=== PATIENT | male | born 1980 | race Caucasian/White ===

== ENCOUNTER 2017-04-30 11:41 | Emergency (ER) | payer BC ==
[~2017-04-30] VITALS: Ht 188 cm; Wt 125.0 kg
[2017-04-30 11:44] VITALS: Ht 188 cm; Wt 125.0 kg
[2017-04-30] MEDS ORDERED: SODIUM CHLORIDE 0.9% 1000ML 1,000 ML IV ONE (12:01)
[2017-04-30] MEDS ORDERED: ACETAMINOPHEN 500 MG TAB PO STA (12:01)
[2017-04-30] MEDS ORDERED: KETOROLAC TROMETHAMINE 30 MG/ML VIAL IV STA (12:01)
--- NOTE | 2017-04-30 12:07 | EMERGENCY ROOM VISIT NOTE ---
History Report prepared by Long: Perry Hardwick Under the Supervision of: Dr. Dale Coreas D.O. First contact with patient: 11:55 Chief Complaint: FEVER Stated Complaint: FEMUR, SEVERE BACK PAIN, NUMBNESS IN LEGS/ARMS History of Present Illness The patient is a 37 year old male who presents to the Emergency Room with complaints of a persistent fever that started 3 days ago. Per the nursing staff , the patient has a history of an L4-L5 herniated disc and is usually able to take care of the discomfort with stretching, but the patient has not been able to take care of it the past few days. The patient says he has a lot of pressure in his lower back on the sides, which is the same pain that he has experienced with his L4-L5 herniated disc. The patient says that the back pain started before the fever. He notes that he has had numbness in his left leg, and this morning, he woke up and his whole left leg was numb in addition to his left hand. The patient adds that he has been nauseous and dry heaving, and he has had a bit of a cough. He states that he has been having headaches, and his urine was darker than normal this morning. The patient is not able to eat much, with a minimal appetite. He denies any neck pain, abdominal pain, vomiting, rashes, or recent travels. The patient says that he has been using Tylenol for the fever. He has not seen anyone for his symptoms yet. The patient states that a few people at work have been sick, but nothing this bad. He notes that he lives in an area with a lot of ticks, but has no history of Lyme Disease. The patient pulls ticks off his body daily. He does not take any daily medications, and he has not surgical history. He drinks alcohol occasionally. Source of History: patient, nursing staff Onset: 3 days ago Position: other (global - fever) Timing: other (persistent) Associated Symptoms: + headache, + cough, + nausea, + back pain (low), + urinary symptoms (urine darker this morning), + numbness (left hand, left leg), No neck pain, No vomiting, No abdominal pain, No rash Note: Associated symptoms: Minimal appetite. Review of Systems See HPI for pertinent positives & negatives. A total of 10 systems reviewed and were otherwise negative. Past Medical & Surgical Medical Problems: (1) Bulging discs (2) Lumbar herniated disc Family History No pertinent family history Social History Smoking Status: Never Smoker Alcohol Use: occasionally Marital Status: Housing Status: lives with family Occupation Status: employed Current/Historical Medications Scheduled Levofloxacin (Levaquin), 750 MG PO DAILY Scheduled PRN Oxycodone Immediate Rel Tab (Roxicodone Ir), 1-2 TAB PO Q4H PRN for Severe Pain Allergies Coded Allergies: Cyclobenzaprine (Unverified Allergy, Unknown, UNKNOWN, 04/30/17) Methylprednisolone (Unverified Allergy, Unknown, UNKNOWN, 04/30/17) Physical Exam Vital Signs Date Time Temp Pulse Resp B/P (MAP) Pulse Ox O2 Delivery O2 Flow Rate FiO2 04/30/17 17:46 103 18 148/90 97 04/30/17 16:41 81 18 124/79 98 Room Air 04/30/17 13:13 37.7 85 130/71 93 04/30/17 12:39 89 18 119/68 93 04/30/17 12:31 92 04/30/17 12:24 93 Room Air 04/30/17 11:44 38.5 109 20 133/85 95 Room Air Physical Exam GENERAL: Patient is awake, alert, somewhat anxious appearing but overall comfortable. EYES: The conjunctivae are clear. The pupils are round and reactive. EARS, NOSE, MOUTH AND THROAT: The nose is without any evidence of any deformity. Mucous membranes are moist tongue is midline NECK: The neck is nontender and supple. RESPIRATORY: Normal respiratory effort is noted there is no evidence of wheezing rhonchi or rales CARDIOVASCULAR: Regular rate and rhythm noted there no murmurs rubs or gallops normal S1 normal S2 GASTROINTESTINAL: The abdomen is soft. Bowel sounds are present in all quadrants. Abdomen is nontender BACK: No midline tenderness to palpation, range of motion appeared intact. There was paravertebral muscle tenderness over the lumbar spine. MUSCULOSKELETAL/EXTREMITIES: There is no evidence of gross deformity full range of motion is noted in the hips and shoulders SKIN: Cool, diaphoretic, and without edema. There were no signs of erythema in lower extremities. NEUROLOGIC: Patient is awake alert and oriented x3 strength is symmetric patellar reflexes are 2+ bilaterally Medical Decision & Procedures ER Provider Diagnostic Interpretation: Radiology results as stated below per my review and radiologist interpretation: KAY VIEW CHEST CLINICAL HISTORY: Sepsis. FINDINGS: An AP, portable, upright chest radiograph is compared to study dated 03/21/2011. The examination is degraded by portable technique and apical lordotic positioning. The cardiomediastinal silhouette is unremarkable. There is dense airspace consolidation identified in the left upper lobe. The right lung appears clear. No large pleural effusion or pneumothorax is seen. The bony thorax is grossly intact. IMPRESSION: There is dense left upper lobe airspace consolidation typical in appearance for pneumonia. Clinical correlation will be required and radiographic follow-up to resolution is recommended. Electronically signed by: Nick Peterson M.D. 04/30/2017 12:29 PM Dictated Date/Time: 04/30/2017 12:29 PM LUMBAR SPINE MRI WITH AND WITHOUT CONTRAST HISTORY: Back pain fever and LBP TECHNIQUE: Multiplanar multisequence MRI of the lumbar spine was performed both before and after the intravenous administration of contrast. COMPARISON: None. FINDINGS: For the purpose of the report the L5-S1 disc space will be located on axial image 27 of 30. Large posterior disc herniation L4-L5. Signal characteristics of the vertebral bodies as well as intervertebral this are unremarkable. No significant postcontrast enhancement. No evidence for abscess or collection. No evidence for discitis. L1-L2: No significant central canal or neural foraminal narrowing. L2-L3: No significant central canal or neural foraminal narrowing. L3-L4: No significant central canal or neural foraminal narrowing. L4-L5: Large posterior disc herniation. Considerable compromise of the anterior aspect of the thecal sac. Moderate narrowing of the neuroforamina bilaterally. L5-S1: Left central bulging disc. Minimal impact left S1 nerve root. No impact thecal sac. IMPRESSION: 1. Large broad-based central disc herniation L4-L5. 2. Left central bulging disc L5-S1. 3. No evidence for abscess collection or discitis. Electronically signed by: Kai Zambrano M.D. 04/30/2017 4:17 PM Dictated Date/Time: 04/30/2017 4:14 PM Laboratory Results 04/30/17 12:00 Red Blood Count 5.60, Mean Corpuscular Volume 88.4, Mean Corpuscular Hemoglobin 29.5, Mean Corpuscular Hemoglobin Concent 33.3, Mean Platelet Volume 10.3, Neutrophils (%) (Auto) 73.6, Lymphocytes (%) (Auto) 11.9, Monocytes (%) (Auto) 14.0, Eosinophils (%) (Auto) 0.1, Basophils (%) (Auto) 0.2, Neutrophils # (Auto ) 8.88, Lymphocytes # (Auto) 1.44, Monocytes # (Auto) 1.69, Eosinophils # (Auto ) 0.01, Basophils # (Auto) 0.02 04/30/17 12:00 Test 04/30/17 12:00 04/30/17 12:16 04/30/17 17:05 White Blood Count 12.06 K/uL (4.8-10.8) Red Blood Count 5.60 M/uL (4.7-6.1) Hemoglobin 16.5 g/dL (14.0-18.0) Hematocrit 49.5 % (42-52) Mean Corpuscular Volume 88.4 fL (80-100) Mean Corpuscular Hemoglobin 29.5 pg (25-34) Mean Corpuscular Hemoglobin Concent 33.3 g/dl (32-36) Platelet Count 191 K/uL (130-400) Mean Platelet Volume 10.3 fL (7.4-10.4) Neutrophils (%) (Auto) 73.6 % Lymphocytes (%) (Auto) 11.9 % Monocytes (%) (Auto) 14.0 % Eosinophils (%) (Auto) 0.1 % Basophils (%) (Auto) 0.2 % Neutrophils # (Auto) 8.88 K/uL (1.4-6.5) Lymphocytes # (Auto) 1.44 K/uL (1.2-3.4) Monocytes # (Auto) 1.69 K/uL (0.11-0.59) Eosinophils # (Auto) 0.01 K/uL (0-0.5) Basophils # (Auto) 0.02 K/uL (0-0.2) RDW Standard Deviation 41.5 fL (36.4-46.3) RDW Coefficient of Variation 12.9 % (11.5-14.5) Immature Granulocyte % (Auto) 0.2 % Immature Granulocyte # (Auto) 0.02 K/uL (0.00-0.02) Erythrocyte Sedimentation Rate 40 mm/hr (0-14) Prothrombin Time 12.0 SECONDS (9.0-12.0) Prothromb Time International Ratio 1.1 (0.9-1.1) Activated Partial Thromboplast Time 30.8 SECONDS (21.0-31.0) Partial Thromboplastin Ratio 1.2 Anion Gap 12.0 mmol/L (3-11) Est Creatinine Clear Calc Drug Dose 126.7 ml/min Estimated GFR () 97.5 Estimated GFR (Non- 84.1 BUN/Creatinine Ratio 11.0 (10-20) Calcium Level 9.1 mg/dl (8.5-10.1) Magnesium Level 2.1 mg/dl (1.8-2.4) Total Bilirubin 1.6 mg/dl (0.2-1) Aspartate Amino Transf (AST/SGOT) 23 U/L (15-37) Alanine Aminotransferase (ALT/SGPT) 44 U/L (12-78) Alkaline Phosphatase 47 U/L (45-117) Total Creatine Kinase 349 U/L (39-308) C-Reactive Protein 16.20 mg/dl (0-0.29) Total Protein 8.5 gm/dl (6.4-8.2) Albumin 3.9 gm/dl (3.4-5.0) Globulin 4.6 gm/dl (2.5-4.0) Albumin/Globulin Ratio 0.8 (0.9-2) Lipase 173 U/L (73-393) Lyme Disease IgG Antibody NEG (NEG) Lyme Disease IgM Antibody NEG (NEG) Bedside Lactic Acid Venous 0.81 mmol/L (0.90-1.70) Urine Color ORANGE Urine Appearance CLEAR (CLEAR) Urine pH 5.5 (4.5-7.5) Urine Specific [place] 1.043 (1.000-1.030) Urine Protein TRACE (NEG) Urine Glucose (UA) NEG (NEG) Urine Ketones 1+ (NEG) Urine Occult Blood 2+ (NEG) Urine Nitrite POS (NEG) Urine Bilirubin 1+ (NEG) Urine Urobilinogen NEG (NEG) Urine Leukocyte Esterase TRACE (NEG) Urine WBC (Auto) 1-5 /hpf (0-5) Urine RBC (Auto) >30 /hpf (0-4) Urine Hyaline Casts (Auto) 1-5 /lpf (0-5) Urine Epithelial Cells (Auto) 10-20 /lpf (0-5) Urine Bacteria (Auto) NEG (NEG) Laboratory results per my review. Medications Administered Medications (Trade) Dose Ordered Sig/[place]mer Route Start Time Stop Time Status Last Admin Dose Admin Sodium Chloride 1,000 ml @ 999 mls/hr Q1H1M ONCE IV 04/30/17 12:01 04/30/17 13:01 DC 04/30/17 12:18 999 MLS/HR Ketorolac Tromethamine (Toradol Inj) 30 mg NOW STAT IV 04/30/17 12:01 04/30/17 12:04 DC 04/30/17 12:19 30 MG Acetaminophen (Tylenol Tab) 1,000 mg NOW STAT PO 04/30/17 12:01 04/30/17 12:04 DC 04/30/17 12:20 1,000 MG Oxycodone HCl (Roxicodone Immediate Rel Tab) 5 mg NOW STAT PO 04/30/17 13:37 04/30/17 13:39 DC 04/30/17 13:48 5 MG Ceftriaxone Sodium (Rocephin Inj) 1 gm NOW STAT IV 04/30/17 13:37 04/30/17 13:39 DC 04/30/17 13:48 1 GM Sodium Chloride 1,000 ml @ 999 mls/hr Q1H1M STAT IV 04/30/17 13:37 04/30/17 14:37 DC 04/30/17 13:48 999 MLS/HR Levofloxacin (Levaquin Tab) 750 mg NOW STAT PO 04/30/17 17:18 04/30/17 17:19 DC 04/30/17 17:37 750 MG ED Course 1157: The patient was evaluated in room C11B. A complete history and physical examination were performed. 1201: Ordered Tylenol Tab 1000 mg PO, Toradol Inj 30 mg IV, NSS 1000 ml @ 999 mls/hr IV. 1337: Ordered Rocephin Inj 1 gm IV, Roxicodone Immediate Rel Tab 5 mg PO. 1340: I reevaluated and updated the patient. 1705: Upon reevaluation, the patient is resting comfortably. I discussed the results and treatment plan with him. He verbalized agreement of the treatment plan. He was discharged home. 1718: Ordered Levaquin Tab 750 mg PO. Medical Decision Prior records/ancillary studies reviewed. Triage Nursing notes reviewed. Differential diagnosis: Etiologies such as viral syndrome, otitis, pharyngitis, pneumonia, influenza, meningitis, urinary tract infection, sepsis, bacteremia, as well as others were entertained. Medication Reconciliation: I attest that I have personally reviewed the patient' s current medications list. Blood pressure screening: Patient was found to have normal blood pressure on screening and does not require follow-up. The patient is a 37-year-old male who presented to the emergency department for an evaluation of fever. The patient had fever and body aches but also had significant back pain. The patient states he has a history of chronic back pain but states this is somewhat worsened compared to previous episodes. The patient has a history of a job where he has significant tick exposure and initially thought this could be consistent with a tick borne illness. I also felt this could be consistent with a tick borne illness. The patient was treated with IV fluids IV pain medicine antipyretics and IV antibiotics in the emergency department. On subsequent reevaluation he was feeling much better. His Lyme screen was negative. I discussed the patient's laboratory and radiographic studies with him. He was found have a pneumonia. I do feel this is the cause of the patient's symptoms but because of the amount of back pain and MRI was obtained to rule out epidural abscess. I discussed the patient's MRI with him. He was encouraged to follow-up with his primary care physician soon as possible for referral to a back specialist. He had no focal neurologic deficits. He was encouraged to rest and avoid any strenuous activity and return to the emergency department immediately if symptoms change worsen or the need arises. Impression Primary Impression: Pneumonia Additional Impressions: Fever Lumbar herniated disc Scribe Attestation The scribe's documentation has been prepared under my direction and personally reviewed by me in its entirety. I confirm that the note above accurately reflects all work, treatment, procedures, and medical decision making performed by me. Departure Information Dispostion Home / Self-Care Prescriptions Oxycodone Immediate Rel Tab (ROXICODONE IR) 5 Mg Tab 1-2 TAB PO Q4H Y for Severe Pain, #24 TAB Prov: Dale Coreas, DO 04/30/17 Levofloxacin (Levaquin) 750 Mg Tab 750 MG PO DAILY, #5 TAB Prov: Dale Coreas, DO 04/30/17 Referrals No Doctor, Assigned (PCP) Forms HOME CARE DOCUMENTATION FORM, IMPORTANT VISIT INFORMATION, Work Instructions Patient Instructions My [facility], Pneumonia, Spine Disk Common Probs Additional Instructions With your family tomorrow as scheduled. Continue to drink plenty of clear liquids. Continue using Motrin and Tylenol as directed for fever and body aches. Rest and avoid any strenuous activity. Discussed the possibility that you may require a referral to an orthopedic spinal specialist to evaluate your back pain as well as the abnormalities noted on MRI. Problem Qualifiers Primary Impression: Pneumonia Pneumonia type: due to unspecified organism Laterality: left Lung location : lower lobe of lung Qualified Codes: J18.1 - Lobar pneumonia, unspecified organism Additional Impressions: Fever Fever type: unspecified Qualified Codes: R50.9 - Fever, unspecified
[2017-04-30 12:24] VITALS: O2SAT 93
[2017-04-30 12:28] LABS: BASO % 0.2 %; BASO ABS # 0.02 K/uL (0-0.2); COMPLETE YES; EOS % 0.1 %; HEMATOCRIT 49.5 % (42-52); IG% 0.2 %; LYMPH % 11.9 %; LYMPH ABS # 1.44 K/uL (1.2-3.4); MEAN CELL VOLUME 88.4 fL (80-100); MEAN CORPUSCULAR HEMOGLOBIN 29.5 pg (25-34); MEAN CORPUSCULAR HGB CONC 33.3 g/dl (32-36); MEAN PLATELET VOLUME 10.3 fL (7.4-10.4); NEUT % 73.6 %; PLATELET COUNT 191 K/uL (130-400); WHITE BLOOD COUNT 12.06 K/uL (4.8-10.8)
--- NOTE | 2017-04-30 12:31 | DIAGNOSTIC IMAGING REPORT ---
SINGLE VIEW CHEST CLINICAL HISTORY: Sepsis. FINDINGS: An AP, portable, upright chest radiograph is compared to study dated 03/21/2011. The examination is degraded by portable technique and apical lordotic positioning. The cardiomediastinal silhouette is unremarkable. There is dense airspace consolidation identified in the left upper lobe. The right lung appears clear. No large pleural effusion or pneumothorax is seen. The bony thorax is grossly intact. IMPRESSION: There is dense left upper lobe airspace consolidation typical in appearance for pneumonia. Clinical correlation will be required and radiographic follow-up to resolution is recommended. Electronically signed by: Nick Peterson M.D. 04/30/2017 12:29 PM Dictated Date/Time: 04/30/2017 12:29 PM
[2017-04-30 12:39] LABS: INR 1.1 (0.9-1.1); PARTIAL THROMBOPLASTIN RATIO 1.2
[2017-04-30 13:04] LABS: CALCIUM 9.1 mg/dl (8.5-10.1); MAGNESIUM 2.1 mg/dl (1.8-2.4); POTASSIUM 4.4 mmol/L (3.5-5.1)
[2017-04-30 13:10] LABS: C-REACTIVE PROTEIN 16.2 mg/dl (0-0.29)
[2017-04-30 13:13] VITALS: TEMP 37.7
[2017-04-30 13:16] LABS: ALB/GLOB RATIO 0.8 (0.9-2); CREATININE 1.1 mg/dl (0.60-1.40)
[2017-04-30 13:29] LABS: LYME DISEASE AB IGM NEG (NEG)
[2017-04-30 13:30] LABS: LYME DISEASE AB IGG NEG (NEG)
[2017-04-30] MEDS ORDERED: CEFTRIAXONE SOD INJ 1 GM ADDVIAL IV STA (13:37)
[2017-04-30] MEDS ORDERED: SODIUM CHLORIDE 0.9% 1000ML 1,000 ML IV STA (13:37)
[2017-04-30] MEDS ORDERED: OXYCODONE HCL IR 5 MG TAB (IMMEDIATE RELEASE) PO STA (13:37)
--- NOTE | 2017-04-30 16:18 | DIAGNOSTIC IMAGING REPORT ---
LUMBAR SPINE MRI WITH AND WITHOUT CONTRAST HISTORY: Back pain fever and LBP TECHNIQUE: Multiplanar multisequence MRI of the lumbar spine was performed both before and after the intravenous administration of contrast. COMPARISON: None. FINDINGS: For the purpose of the report the L5-S1 disc space will be located on axial image 27 of 30. Large posterior disc herniation L4-L5. Signal characteristics of the vertebral bodies as well as intervertebral this are unremarkable. No significant postcontrast enhancement. No evidence for abscess or collection. No evidence for discitis. L1-L2: No significant central canal or neural foraminal narrowing. L2-L3: No significant central canal or neural foraminal narrowing. L3-L4: No significant central canal or neural foraminal narrowing. L4-L5: Large posterior disc herniation. Considerable compromise of the anterior aspect of the thecal sac. Moderate narrowing of the neuroforamina bilaterally. L5-S1: Left central bulging disc. Minimal impact left S1 nerve root. No impact thecal sac. IMPRESSION: 1. Large broad-based central disc herniation L4-L5. 2. Left central bulging disc L5-S1. 3. No evidence for abscess collection or discitis. Electronically signed by: Kai Zambrano M.D. 04/30/2017 4:17 PM Dictated Date/Time: 04/30/2017 4:14 PM
[2017-04-30] MEDS ORDERED: LEVOFLOXACIN 250 MG TAB PO STA (17:18)
[2017-04-30] MEDS ORDERED: OXYC1TAB3 PO (17:31)
[2017-04-30] MEDS ORDERED: LEVO1TAB35 PO (17:31)
[2017-04-30 17:36] LABS: URINE APPEARANCE CLEAR (CLEAR); URINE COLOR ORANGE; URINE NITRITE POS (NEG); URINE PH 5.5 (4.5-7.5); URINE SPECIFIC GRAVITY 1.043 (1.000-1.030); UROBILINOGEN NEG (NEG); ZZUR CULT IF INDIC CLEAN CATCH NO
[2017-04-30 17:46] VITALS: BP 148/90; PULSE 103; O2SAT 97
[2017-04-30 17:47] LABS: MANUAL MICROSCOPIC REQUIRED? NO; REVIEW REQ? NO; URINE BILIRUBIN 1+ (NEG)
== END 2017-04-30 17:48 | disposition home or self-care (01) ==
LOC: C.EDB 11:43 → C.EDC 17:48
DX: J18.9 Pneumonia, unspecified organism (principal); M51.26 Other intervertebral disc displacement, lumbar region; G89.29 Other chronic pain; Z88.8 Allergy status to other drugs, medicaments and biological substances; Z79.899 Other long term (current) drug therapy

== ENCOUNTER 2017-07-16 10:46 | Emergency (ER) | payer BC ==
[~2017-07-16] VITALS: Ht 188 cm; Wt 125.0 kg
[~2017-07-16 10:46] MED LIST: LEVO1TAB35 PO; OXYC1TAB3 PO
[2017-07-16 10:56] VITALS: Ht 188 cm; Wt 125.0 kg
[2017-07-16] MEDS ORDERED: DIAZEPAM INJ 5 MG/ML 2 ML CARP IM STA (11:19)
[2017-07-16] MEDS ORDERED: KETOROLAC TROMETHAMINE 60 MG/2 ML VIAL IM STA (11:19)
[2017-07-16] MEDS ORDERED: NAPR220T40 PO (11:39)
--- NOTE | 2017-07-16 11:46 | EMERGENCY ROOM VISIT NOTE ---
ED Visit Note First contact with patient: 11:03 CHIEF COMPLAINT: Low back pain with radiculopathy HISTORY OF PRESENT ILLNESS: This 37-year-old male patient presents to the emergency department, ambulatory, with his , complaining of pain in the low back which began approximately one week ago. The patient does report a history of low back pain, and states approximately 2 months ago, he had an MRI which showed a herniated disc at L4-L5. The patient states the back pain flares up on occasion, but improves after approximately 4-5 days. The patient states for the past week, he has been experiencing increased back pain, and it has not improved. The patient has been taking Aleve, 2 capsules daily as well as his prescription for oxycodone, without relief of his pain. The patient did see his chiropractor in [place] yesterday, who updated x-rays and cracked his back. The patient has not done any physical therapy. The patient just recently got established with a new PCP, but has not yet seen them regarding his back pain. The patient states he has not yet seen an orthopedic surgeon or a back specialist. The pain was gradual in onset, is now constant and worse with movement. The patient notes the pain as tingling and burning starting in the right buttock and radiating down the posterior aspect of the right leg and a 10/10. The patient denies any loss of control of their bowel or bladder functions. There has been no no change in sensation. No nausea or vomiting or abdominal pain. No chest pain or shortness of breath. No dysuria or increased urinary frequency. The patient denies any injury. REVIEW OF SYSTEMS: A 10 system review of systems was performed with positives and pertinent negatives listed in the history of present illness. All other systems were reviewed and are negative. ALLERGIES: Flexeril, methylprednisolone MEDICATIONS: Aleve, oxycodone PMH: Herniated disc at L4-L5 SOCIAL HISTORY: The patient lives locally with family. He denies drug, tobacco use. The patient admits to occasional alcohol use. PHYSICAL EXAM: VITALS: Vitals are noted on the nurse's note and reviewed by myself. Vital signs stable. GENERAL: This is a 37-year-old white male, in no acute distress, nondiaphoretic , well-developed well-nourished. SKIN: The skin was without rashes, erythema, edema, or bruising. Capillary refill less than 2 seconds. NECK: Supple without nuchal rigidity. No cervical spine tenderness. No paraspinous muscle tenderness. HEART: Regular rate and rhythm without murmurs gallops or rubs. LUNGS: Clear to auscultation bilaterally without wheezes, rales or rhonchi. ABDOMEN: Positive bowel sounds x 4. Normal tympanic percussion. Soft, nontender, without masses or organomegaly. Rodríguez sign negative. MUSCULOSKELETAL: No muscle atrophy, erythema, or edema noted of the back. There is no tenderness over the lumbar spinous processes. There is mild tenderness over the paraspinous muscles, worse on the right. There is no tenderness over the thoracic spine or paraspinous muscles. There are mild muscle spasms present. The patient is slow to move around with maximum tenderness with changing positions, moving from a lying to a sitting position. Positive straight leg raise test bilaterally. NEURO: Patient was alert and oriented to person place and time. Normal sensation to light and sharp touch. Deep tendon reflexes 2+ in the lower extremities. Dorsalis pedis pulse 2+ bilaterally. Strength 5/5 and equal in the bilateral lower extremities. EMERGENCY DEPARTMENT COURSE: Was seen and evaluated as above. He was given 5 mg Valium and 60 mg Toradol IM. The patient did report moderate improvement in his symptoms. He was given a dose of 5mg Valium PO. I discussed discharge instructions with the patient and encouraged him to follow up outpatient. The patient was discharged home in good condition. DIFFERENTIAL DIAGNOSIS: Sciatica, lumbar strain, lumbar fracture, malignancy, disc protrusion, and others DIAGNOSIS: Sciatica DISCHARGE INSTRUCTIONS AND TREATMENT: You have been treated in the Emergency Department for Back Pain. You have received pain medicine in the emergency department which impairs your ability to operate a vehicle. It is illegal for you to drive after receiving these medicines. You have been prescribed Valium 1 tab orally, up to three times per day. Take your first dose at bedtime as it can make you drowsy. Always take all medications as prescribed. For pain control, you can use the following [id number] medicines (if >12 yo): Ibuprofen(Motrin, Advil) may be used for fever or pain. Use 600mg every six hours as needed. Take with food. Avoid using more than 2400mg in a 24 hour period. Do not use 2400mg per day for more than three consecutive days without physician direction. Prolonged inappropriate use can lead to stomach upset or ulcers. (AND/OR) Acetaminophen(Tylenol) may be used for fever or pain. Use 1000mg every six hours as needed. Avoid using more than 3000mg in a 24 hour period. If this is an acute injury, ice can be applied to the area of pain for the first 3 days to help decrease pain and inflammation. After the first 3 days, a heating pad can be used over the area for continued soothing relief. You should schedule a follow-up appointment in 1-2 days with your Primary Care Provider for further evaluation and treatment of your back pain. You may consider follow-up with Dr. Esparza, the ortho-spine surgeon locally. Return to the Emergency Department if your current symptoms worsen despite treatment course outlined above, or if you develop any of the following symptoms : intractable pain despite aforementioned treatment course, loss of control of your bowel or bladder, numbness or tingling in your groin, or development of a fever. Problem List Medical Problems: (1) Bulging discs Status: Chronic (2) Lumbar herniated disc Status: Chronic Current/Historical Medications Scheduled Diazepam (Valium), 5 MG PO TID Scheduled PRN Naproxen Sodium (Aleve), 220 MG PO UD PRN for Pain Allergies Coded Allergies: Cyclobenzaprine (Unverified Allergy, Unknown, UNKNOWN, 04/30/17) Methylprednisolone (Unverified Allergy, Unknown, UNKNOWN, 04/30/17) Vital Signs Date Time Temp Pulse Resp B/P (MAP) Pulse Ox O2 Delivery O2 Flow Rate FiO2 07/16/17 12:53 36.4 66 18 153/90 98 07/16/17 10:56 36.4 66 18 153/90 98 Room Air Medications Administered Medications (Trade) Dose Ordered Sig/Gilmer Route Start Time Stop Time Status Last Admin Dose Admin Ketorolac Tromethamine (Toradol Inj) 60 mg NOW STAT IM 07/16/17 11:19 07/16/17 11:22 DC 07/16/17 11:32 60 MG Diazepam (Valium Inj) 5 mg NOW STAT IM 07/16/17 11:19 07/16/17 11:22 DC 07/16/17 11:32 5 MG Diazepam (Valium Tab) 5 mg NOW STAT PO 07/16/17 12:32 07/16/17 12:34 DC 07/16/17 12:55 5 MG Departure Information Impression Primary Impression: Sciatica Dispostion Home / Self-Care Condition GOOD Prescriptions Diazepam (Valium) 5 Mg Tab 5 MG PO TID, #9 TAB Prov: Tiffany Quick PA-C 07/16/17 Referrals Sarthak Parker D.O. (PCP) Los Esparza D.O. Patient Instructions ED Sciatica, My [facility] Additional Instructions You have been treated in the Emergency Department for Back Pain. You have received pain medicine in the emergency department which impairs your ability to operate a vehicle. It is illegal for you to drive after receiving these medicines. You have been prescribed Valium 1 tab orally, up to three times per day. Take your first dose at bedtime as it can make you drowsy. Always take all medications as prescribed. For pain control, you can use the following nuyo-uag-abdzgca medicines (if >12 yo): Ibuprofen(Motrin, Advil) may be used for fever or pain. Use 600mg every six hours as needed. Take with food. Avoid using more than 2400mg in a 24 hour period. Do not use 2400mg per day for more than three consecutive days without physician direction. Prolonged inappropriate use can lead to stomach upset or ulcers. (AND/OR) Acetaminophen(Tylenol) may be used for fever or pain. Use 1000mg every six hours as needed. Avoid using more than 3000mg in a 24 hour period. If this is an acute injury, ice can be applied to the area of pain for the first 3 days to help decrease pain and inflammation. After the first 3 days, a heating pad can be used over the area for continued soothing relief. You should schedule a follow-up appointment in 1-2 days with your Primary Care Provider for further evaluation and treatment of your back pain. You may consider follow-up with Dr. Esparza, the ortho-spine surgeon locally. Return to the Emergency Department if your current symptoms worsen despite treatment course outlined above, or if you develop any of the following symptoms : intractable pain despite aforementioned treatment course, loss of control of your bowel or bladder, numbness or tingling in your groin, or development of a fever. Problem Qualifiers Primary Impression: Sciatica Laterality: right Qualified Codes: M54.31 - Sciatica, right side
[2017-07-16] MEDS ORDERED: DIAZ-165 PO (12:31)
[2017-07-16] MEDS ORDERED: DIAZEPAM 5MG TAB PO STA (12:32)
[2017-07-16 12:53] VITALS: BP 153/90; PULSE 66; TEMP 36.4; O2SAT 98
== END 2017-07-16 12:54 | disposition home or self-care (01) ==
LOC: C.EDB 10:47 → C.EDC 12:54
DX: M54.31 Sciatica, right side (principal); M51.26 Other intervertebral disc displacement, lumbar region; Z79.899 Other long term (current) drug therapy

== ENCOUNTER → 2017-07-17 | Outpatient (CLI) | payer BC ==
[~2017-07-17] MED LIST changes: +DIAZ-165 PO; -LEVO1TAB35 PO; +NAPR220T40 PO; -OXYC1TAB3 PO; +RXC5 PO
[2017-07-17 17:09] LABS: ALT/SGPT 56 U/L (12-78); AST/SGOT 27 U/L (15-37); BLOOD UREA NITROGEN 14 mg/dl (7-18); CALCIUM 9.5 mg/dl (8.5-10.1); CARBON DIOXIDE 30 mmol/L (21-32); CHLORIDE 104 mmol/L (98-107); CHOLESTEROL 174 mg/dl (0-200); CREATININE 0.82 mg/dl (0.60-1.40); GLUCOSE,FASTING 71 mg/dl (70-99); POTASSIUM 3.8 mmol/L (3.5-5.1); SODIUM 141 mmol/L (136-145)
[2017-07-17 17:13] LABS: ALKALINE PHOSPHATASE 49 U/L (45-117); CHOLESTEROL/HDL RATIO 7.3; HDL CHOLESTEROL 24 mg/dl; LDL CHOLESTEROL CALCULATED 85 mg/dl; TRIGLYCERIDES 323 mg/dl (0-150); VERY LOW DENSITY LIPOPROT CALC 65 mg/dl
[2017-07-17 17:35] LABS: LYME DISEASE AB IGG NEG (NEG); LYME DISEASE AB IGM NEG (NEG)
== END | disposition home or self-care (01) ==
LOC: C.LABPBG 11:22
PROVIDERS: ATTEND Neuromusculoskeletal Medicine & OMM
DX: Z00.00 Encounter for general adult medical examination without abnormal findings (principal); T14.8 Other injury of unspecified body region; W57.XXXA Bitten or stung by nonvenomous insect and other nonvenomous arthropods, initial encounter

== ENCOUNTER 2017-07-18 00:32 | Inpatient (IN) | payer BC ==
[2017-07-18] VITALS (7 sets, daily range): BP systolic 131–172; BP diastolic 68–102; PULSE 62–70; TEMP 36.3–36.8; O2SAT 94–97; Ht 188 cm; Wt 126.0 kg
[~2017-07-18] VITALS: Ht 188 cm; Wt 126.0 kg
[~2017-07-18 00:32] MED LIST changes: -RXC5 PO
[2017-07-18] MEDS ORDERED: ONDANSETRON INJ 2 MG/ML 2 ML VIAL IV STA (01:23)
[2017-07-18] MEDS ORDERED: KETOROLAC TROMETHAMINE 30 MG/ML VIAL IV STA (01:23)
[2017-07-18] MEDS ORDERED: MoRPHine SULFATE 10 MG/ML CARP/VIAL IV STA (01:23)
--- NOTE | 2017-07-18 02:00 | EMERGENCY ROOM VISIT NOTE ---
History Report prepared by Long: Nash Joshi Under the Supervision of: Dr. Delilah Ortiz D.O. First contact with patient: 00:46 Chief Complaint: BACK PAIN Stated Complaint: BACK PAIN History of Present Illness The patient is a 37 year old male who presents to the Emergency Room with complaints of worsening back pain over the past couple of months more so on the right side in the lower back. He currently rates his discomfort as a 10/10 in severity. The patient states that in April he was having back pain, and a fever of 101-104, and he had an MRI and blood work for possible Lyme's disease which came back negative. He additionally states that today he had blood work done for a follow up on Lyme's disease. The patient states that he has not been able to sleep recently. He states that when he stands up his right leg goes numb as well as part of his genitals, and he states that when he sits down it is better. He states that he is currently having a sharp pain down his right leg down to his knee. The patient additionally states that he is having weakness in his right leg. He denies any abdominal pain. The patient states that he has not followed up with orthopedics yet, and he is trying to get a referral from his PCP. 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 Source of History: patient Onset: a couple of months ago Position: back (lower moreso on the right) Symptom Intensity: 10/10 Timing: worsening Associated Symptoms: + weakness, + numbness Note: Associated symptoms: right leg pain Review of Systems See HPI for pertinent positives & negatives. A total of 10 systems reviewed and were otherwise negative. Past Medical & Surgical Medical Problems: (1) Bulging discs (2) Lumbar herniated disc Family History No pertinent family history Social History Smoking Status: Never Smoker Alcohol Use: occasionally Marital Status: Housing Status: lives with family Occupation Status: employed Current/Historical Medications Scheduled Diazepam (Valium), 5 MG PO TID Scheduled PRN Naproxen Sodium (Aleve), 220 MG PO UD PRN for Pain Allergies Coded Allergies: Cyclobenzaprine (Unverified Allergy, Unknown, UNKNOWN, 07/18/17) Methylprednisolone (Unverified Allergy, Unknown, UNKNOWN, 07/18/17) Physical Exam Vital Signs Date Time Temp Pulse Resp B/P (MAP) Pulse Ox O2 Delivery O2 Flow Rate FiO2 07/18/17 02:49 64 18 153/92 95 Room Air 07/18/17 00:37 36.8 73 18 145/81 96 Room Air Physical Exam HEENT: Head - normocephalic and atraumatic Pupils are equal, round, and reactive to light. Extraocular eye muscles are intact, and sclera are anicteric. Nose - moist nasal mucosa without discharge. Mouth - moist buccal mucosa. Oropharynx is nonerythematous and there is no tonsillar exudate or edema noted. Neck: Supple; no JVD, nuchal rigidity, cervical lymphadenopathy. Heart: Regular rate and rhythm. There is a normal S1 and S2 with no murmurs, clicks, or gallops appreciated. Lungs: Clear to auscultation bilaterally with no wheezes, rales, or rhonchi. Abdomen: Soft, completely nontender, nondistended, with good bowel sounds. There are no palpable pulsatile masses or hepatosplenomegaly. There is no guarding, rigidity, or rebound noted. Back: Significant lower back muscle spasm. Extremities: Significant pain in the right piriformis muscle and the distribution of the sciatic nerve. Absent patellar tendon reflexes in the right knee. Normal sensation in the right leg. No evidence of cyanosis, clubbing, or edema. There are easily palpable peripheral pulses. Skin: warm and dry with good turgor and no rashes. Medical Decision & Procedures Medications Administered Medications (Trade) Dose Ordered Sig/Gilmer Route Start Time Stop Time Status Last Admin Dose Admin Morphine Sulfate (MoRPHine SULFATE INJ) 8 mg NOW STAT IV 07/18/17 01:23 07/18/17 01:24 DC 07/18/17 01:55 8 MG Ketorolac Tromethamine (Toradol Inj) 30 mg NOW STAT IV 07/18/17 01:23 07/18/17 01:24 DC 07/18/17 01:56 30 MG Ondansetron HCl (Zofran Inj) 4 mg NOW STAT IV 07/18/17 01:23 07/18/17 01:24 DC 07/18/17 01:55 4 MG Morphine Sulfate (MoRPHine SULFATE INJ) 4 mg NOW STAT IV 07/18/17 02:35 07/18/17 02:36 DC 07/18/17 02:47 4 MG Procedure Zofran IV, Toradol IV, Morphine Sulfate IV X2 ED Course 0106: Past medical records reviewed. The patient was evaluated in room C5. A complete history and physical exam was performed. In April 2017, the patient had an MRI which showed a lumbar disc herniation at L4-L5. 0123: Zofran Inj 4mg IV, Toradol Inj 30mg IV, Morphine Sulfate Inj 8mg IV 0233: I reevaluated the patient, and he is feeling a little bit better, but it is still hurting. 0235: Morphine Sulfate Inj 4mg IV 0238: I discussed the patient's case with Amrita Napoles PA-C Orthopedics, and she recommends admission to medicine. 0310: Discussed the patient's case with Dr. Fatima. The patient will be evaluated for further management. Medical Decision The patient is a 37 year old male who presents to the ED with right sided back pain. Differential diagnosis includes lumbar disc herniation, lumbar radiculopathy, lumbar nerve root compression, cauda equina syndrome. The patient is having an acute exacerbation of right-sided low back pain. He has a known L4-L5 disc herniation at that level. He has significant muscle spasm with the low back. He received multiple doses of IV analgesia with recurrent symptoms. Because of the patient's intractable pain, lack of patellar reflexes in the right leg, and intermittent numbness to the right lower extremity and genitalia, I felt the patient will require inpatient care and immediate evaluation by orthopedics. [place] Drug Monitoring Program Search Results: patient reviewed within database, no issues identified Medication Reconcilliation Current Medication List: was personally reviewed by me Blood Pressure Screening Patient's blood pressure: Elevated blood pressure Blood pressure disposition: Elevated BP felt to be situational Consults Time Called: 023 Consulting Physician: Amrita Bertrand PA-C Orthopedics Returned Call: 0238 I discussed the patient's case with Amrita Bertrand PA-C Orthopedics, and she recommends admission to medicine. Additional Consults: Time Called: 0245 Consulted Physician: Dr. Fatima Returned Call: 031 Additional Comments: Discussed the patient's case with Dr. Fatima. The patient will be evaluated for further management. Impression Primary Impression: Lumbar back pain Additional Impression: Lumbar disc herniation Scribe Attestation The scribe's documentation has been prepared under my direction and personally reviewed by me in its entirety. I confirm that the note above accurately reflects all work, treatment, procedures, and medical decision making performed by me. Departure Information Dispostion Being Evaluated By Hospitalist Referrals Sarthak Parker D.O. (PCP) Patient Instructions My [facility] Problem Qualifiers Primary Impression: Lumbar back pain Chronicity: acute Back pain laterality: right Sciatica presence: with sciatica Sciatica laterality: sciatica of right side Qualified Codes: M54.41 - Lumbago with sciatica, right side
[2017-07-18] MEDS ORDERED: MoRPHine SULFATE 4 MG/ML 1 ML CARP\\VIAL IV STA (02:35)
[2017-07-18] MEDS ORDERED: ACETAMINOPHEN 325 MG TAB PO PRN (03:15)
[2017-07-18] MEDS ORDERED: ONDANSETRON INJ 2 MG/ML 2 ML VIAL IV PRN (03:15)
--- NOTE | 2017-07-18 03:37 | History and Physical ---
History & Physical Date & Time of Service: Jul 18, 2017 at 03:37 Chief Complaint: Back Pain Primary Care Physician: Sarthak Parker D.O. History of Present Illness Source: patient, clinic records, hospital records Mr Marin is a 37 year old male who presents to the ER with back pain radiating down his right lateral leg. He has previously come to the ER for the same problem in April and had MRI which showed L4/5 herniated disc. He denies any fevers, chills, weight loss. He is fully continent of bladder and bowels. He denies any perianal numbness. He does have numbness and tingling pain in L5 distribution on right leg He does not have an orthopedic doctor in [place]. He has previously received steroid injections in his back. 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 Past Medical/Surgical History Medical Problems: (1) Bulging discs Status: Chronic (2) Lumbar herniated disc Status: Chronic Family History No pertinent family history Social History Smoking Status: Never Smoker Smokeless Tobacco Use: No Alcohol Use: none Drug Use: none Marital Status: Housing status: lives with family Occupational Status: employed Immunizations History of Influenza Vaccine: Unknown History of Tetanus Vaccine?: Unknown History of Pneumococcal: Unknown History of Hepatitis B Vaccine: Unknown Multi-Drug Resistant Organisms History of MDRO: No Allergies Coded Allergies: Cyclobenzaprine (Unverified Allergy, Unknown, UNKNOWN, 07/18/17) Methylprednisolone (Unverified Allergy, Unknown, UNKNOWN, 07/18/17) Home Medications Scheduled Diazepam (Valium), 5 MG PO TID Scheduled PRN Naproxen Sodium (Aleve), 220 MG PO UD PRN for Pain Review of Systems Constitutional: No fever, No chills Eyes: No worsening of vision ENT: No hearing loss Respiratory: No cough, No sputum, No wheezing, No shortness of breath, No dyspnea on exertion, No dyspnea at rest Cardiovascular: No chest pain, No orthopnea, No PND, No edema, No claudication , No palpitations Abdomen: No pain, No nausea, No vomiting, No diarrhea, No constipation, No GI bleeding Musculoskeletal: + muscle pain (right leg as per HPI), No joint pain Genitourinary - Male: No hematuria, No dysuria, No urinary frequency, No urinary retention, No urinary incontinence Neurologic: + weakness (right leg), + numbness/tingling (right leg as per HPI) , No memory loss, No paralysis Endocrine: No excessive thirst, No excessive urination Hematologic / Lymphatic: No abnormal bleeding/bruising Integumentary: No rash, No itch Physical Exam Vital Signs Date Time Temp Pulse Resp B/P (MAP) Pulse Ox O2 Delivery O2 Flow Rate FiO2 07/18/17 02:49 64 18 153/92 95 Room Air 07/18/17 00:37 36.8 73 18 145/81 96 Room Air General Appearance: WD/WN, + mild distress (from back pain) Eyes: normal inspection, EOMI Neck: supple, no JVD Respiratory/Chest: chest non-tender, lungs clear, normal breath sounds, no respiratory distress, no accessory muscle use Cardiovascular: regular rate, rhythm, no edema, no murmur, normal peripheral pulses Abdomen/GI: normal bowel sounds, non tender, soft Back: no CVA tenderness Extremities/Musculoskelatal: no calf tenderness, normal capillary refill, no pedal edema, + pertinent finding (back pain reproduced with 15 degrees right straight leg extension) Neurologic/Psych: blemish remover II-XII nml as tested (no facial droop), alert, oriented x 3, + motor weakness (4/5 hip flexion on right but limited examination due to pain, otherwise normal lower limb motor examination), + sensory deficit (L4/5 distribution numbness), + abnormal reflexes (reduced knee reflex on right compared to left) Skin: normal color, warm/dry, no rash Impression Assessment and Plan 37 year old male with intractable back pain secondary to lumbar herniation Back pain with L4/L5 disc herniation - Decadron 10mg now, then 6mg Q6H - Tramadol 50mg Q4H PRN - Acetaminophen - MRI in the morning with and without contrast - pending result consider back brace / consult ortho VTE Prophylaxis - young age - therefore will hold off chemical prophylaxis Code - Full Disposition - Observation status for intractable back pain Attending Addendum: I have physically seen and examined this patient, have supervised the medical residents activities, and agree with the H&P as noted above with the following exceptions as noted. The patient presents to the emergency department with progressively worsening low back pain with intermittent numbness and radicular pain extending to the right foot that is increased in intensity and is now present continually as opposed to when he first presented to the emergency department in April when an MRI showed an L4/5 HNP. He has received injections in his back when he worked in [facility] [facility] when the symptoms first occurred. His job is involved with installing power lines. He reports that he did have a temperature of 101 when the symptoms first occurred, but received an injection and then 5 days of antibiotic and the temperature resolved at that time. The patient denies chest pain, palpitations, shortness of breath, cough, lower extremity swelling, vision change, hearing change, sore throat, fevers, chills, sweats, weight change, fatigue, nausea, vomiting, diarrhea or constipation, abdominal pain, pelvic pain, blood in urine or stool, dysuria, urinary frequency or urgency, lightheadedness, dizziness, headache, memory loss, rash, abnormal bruising or bleeding, generalized weakness, numbness or tingling in arms or left leg, generalized arthralgias or myalgias, neck pain, night sweats. The review of systems is otherwise negative other than for that already noted above, and at least 10 systems have been reviewed. The patient is awake, well-developed and adequately nourished, alert and oriented 3, normocephalic and atraumatic, lying in bed and in no acute distress. HEENT--PERRL, EOMI, mucous membranes and oropharynx dry. Neck--supple, no JVD or bruits, thyroid normal, trachea midline, no adenopathy. Heart--normal S1 and S2, no extra beats, no murmurs, rubs or gallops. Lungs--clear bilaterally with good air movement, no respiratory distress, no accessory muscle use. Abdomen--normal bowel sounds and soft, nontender and nondistended, no hernias or masses, no organomegaly. Extremities--no cyanosis, clubbing or edema. There are good distal pulses b/l. Dermatologic--normal skin turgor, normal color, warm and dry, no abnormal lymph nodes, no rash. Neurologic--cranial nerves II through XII grossly intact. Remainder of abnormal exam as discussed above. Rheumatologic--decreased range of motion right leg due to pain. Mild reproducible pain over lower lumbar region. Psychiatric--normal affect. Assessment and Plan: 1. L4/5 HNP with right lower extremity radiculopathy--the patient will be admitted to the medical surgical floor. Place on Decadron 10 mg IV now, and then 6 mg IV every 6 hours. Morphine IV when necessary. Consult Dr. Esparza from orthopedic spine surgery, who's assistant men's lacrosse coach is aware of the patient. Repeat MRI lumbar spine in the a.m., since his symptoms have intensified since the first MRI was done in April. Level of Care Med/Surg Resuscitation Status FULL RESUSCITATION VTE Prophylaxis VTE Risk Assessment Done? Y/N: Yes Risk Level: Moderate Given or contraindicated: T.E.D. Stockings, SCD's, Treatment not indicated Social Service Consult None Apply Additional Copies To Sarthak Parker D.O. Resident Tracking Resident Involvement: Resident Care Provided Care Provided: Adult Hospital Medicine
[2017-07-18] MEDS ORDERED: TRAMADOL HCL 50 MG TAB PO PRN (03:45)
[2017-07-18] MEDS ORDERED: IV FLUIDS COMPLETED PRN (04:15)
[2017-07-18] MEDS ORDERED: DIAZEPAM 5MG TAB PO SCH (09:00)
[2017-07-18] MEDS ORDERED: NAPROXEN 250 MG TAB PO SCH (09:00)
[2017-07-18] MEDS: KETOROLAC TROMETHAMINE 30 MG/ML VIAL IV PRN (09:39)
[2017-07-18] MEDS ORDERED: GADAVIST IV PRN (11:45)
--- NOTE | 2017-07-18 12:03 | DIAGNOSTIC IMAGING REPORT ---
LUMBAR SPINE COMBINATION CLINICAL HISTORY: 37 years-old Male presenting with back pain, right leg radiation in L5/S1 distribution. TECHNIQUE: Multisequence, multiplanar MR imaging of the lumbar spine was performed before and after the administration of intravenous contrast. IV contrast: 12.5 mL of Gadavist. COMPARISON: 04/30/2017. FINDINGS: Localizer images: Bladder wall thickening may be present, although the bladder is under distended. Straightening of normal lumbar lordosis. Vertebral bodies maintain normal height, alignment, and bone marrow signal intensity. Mild disc desiccation noted from L3-4 through L5-S1. Interval increase in size and mass effect of the large central disc protrusion at L4-5, which enhances. There is now complete effacement of the thecal sac at this level with resulting impingement of the cauda equina. Mild bilateral neural foraminal narrowing also results, left greater than right. Mild disc bulge with possible annular tear noted at L5-S1 with associated enhancement. Only minimal left paracentral effacement of the ventral thecal sac results. Mild left neural foraminal narrowing also noted at L5-S1. Spinal cord ends in good position at the superior endplate of L1. Cauda equina impingement at L4-5 as above. Otherwise the cauda equina maintains normal morphology and enhancement. Paraspinal soft tissues normal. Nonspecific subcutaneous edema noted in the lower back. IMPRESSION: 1. Significant interval worsening of the central disc protrusion at L4-5 with complete effacement of the thecal sac and resulting in cauda equina impingement. Correlate for symptomatology. 2. Mild bilateral neural foraminal narrowing at L4-5, left greater than right. 3. Mild paracentral disc bulge at L5-S1 with concern for annular tear. Mild left neural foraminal narrowing at L5-S1. The report will be called/faxed according to standard departmental protocol. Electronically signed by: Wayne Oliver M.D. 07/18/2017 12:02 PM Dictated Date/Time: 07/18/2017 11:55 AM
--- NOTE | 2017-07-18 13:00 | Progress Note ---
Progress Note Date of Service Jul 18, 2017. Progress Note Lumbar MRI results reviewed. Visited patient. Continuing to have severe right LE radiating pain. Also c/o numbness across the whole perineum. Denies bladder/bowel incontinence, retention. O/e - Gait - leaning forward and favoring right LE. Back and LE - Motor intact. DTR 11/26 globally. Sensation - decreased in perineum. Rectal - Normal sphincter tone. Spoke to Dr. Esparza - He will come in and evaluate him soon
[2017-07-18] MEDS ORDERED: SODIUM CHLORIDE 0.9% 1000ML 1,000 ML IV SCH (14:58)
[2017-07-18] MEDS ORDERED: NALOXONE HCL 0.4 MG/1 ML VIAL/CARP IV PRN (15:00)
[2017-07-18] MEDS ORDERED: HYDROmorphone HCL 0.5MG/ML 50 ML CASSETTE IV PRN (15:00)
--- NOTE | 2017-07-18 15:05 | Orthopedic Consultation ---
Orthopedic Consultation Date of Consultation: Jul 18, 2017. Attending Physician: Ewelina Fraire M.D. Reason for Consultation: Back and leg pain History of Present Illness This is a 37-year-old male who's had a history of back and leg symptoms for several years. He noted a significant decline this year beginning in April. She denies any specific trauma fall or event. He states he was evaluated in April for back and leg pain but but was still at work. Last evening to our hospital with continued back pain. He denies a trauma fall or event that potentiated his symptoms. He does describe his pain as involving lumbosacral junction right buttock extending on the right leg exacerbated by activity. He describes numbness in the right lower extremity and right side perineal area that began about 4 days ago. He denies any loss of bowel or bladder control. Denies any urinary retention. He's been working up until this time. Not had any previous back surgery. Past Medical/Surgical History Medical Problems: (1) Fever Status: Acute (2) Intractable back pain Status: Acute (3) Lumbar back pain Status: Acute (4) Lumbar disc herniation Status: Acute (5) Pneumonia Status: Acute (6) Sciatica Status: Acute Family History No pertinent family history Social History Smoking Status: Never Smoker Smokeless Tobacco Use: No Alcohol Use: none Drug Use: none Marital Status: Housing Status: lives with family Occupation Status: employed Allergies Coded Allergies: Cyclobenzaprine (Unverified Allergy, Unknown, UNKNOWN, 07/18/17) Methylprednisolone (Unverified Allergy, Unknown, UNKNOWN, 07/18/17) Home Medications Scheduled Diazepam (Valium), 5 MG PO TID Scheduled PRN Naproxen Sodium (Aleve), 220 MG PO UD PRN for Pain Current Inpatient Medications Current Inpatient Medications Medications (Trade) Dose Ordered Sig/Gilmer Route Start Time Stop Time Status Last Admin Dose Admin Acetaminophen (Tylenol Tab) 650 mg Q4H PRN PO 07/18/17 03:15 08/17/17 03:14 Ondansetron HCl (Zofran Inj) 4 mg Q6H PRN IV 07/18/17 03:15 08/17/17 03:14 Morphine Sulfate (MoRPHine SULFATE INJ) 4 mg Q4H PRN IV 07/18/17 03:15 08/01/17 03:14 Tramadol HCl (Ultram Tab) 50 mg Q2H PRN PO 07/18/17 03:45 08/17/17 03:44 07/18/17 04:30 50 MG Ketorolac Tromethamine (Toradol Inj) 30 mg Q6H PRN IV 07/18/17 03:45 07/23/17 03:44 07/18/17 09:39 30 MG Miscellaneous (Iv Fluids Completed) 1 ea PRN PRN N/A 07/18/17 04:15 07/18/18 04:14 Gadobutrol (Gadavist) 12.5 mmol UD PRN IV 07/18/17 11:45 07/22/17 11:44 Physical Exam Date Time Temp Pulse Resp B/P (MAP) Pulse Ox O2 Delivery O2 Flow Rate FiO2 07/18/17 08:00 94 Room Air 07/18/17 07:51 36.5 62 15 131/68 (89) 94 Room Air 07/18/17 04:10 36.3 62 16 163/102 97 Room Air 07/18/17 02:49 64 18 153/92 95 Room Air 07/18/17 00:37 36.8 73 18 145/81 96 Room Air Patient is able to sit comfortably on the side of the bed. Standing and ambulation is markedly uncomfortable however. He exhibits significant antalgia particularly with weight bearing on the right lower extremity. Bench exam reveals positive tension signs with straight leg raising on the right contralateral signs straight-leg leg raising on the left. He is decreased sensation to light touch along the right lower extremity compared to the left. He has a 4 over 5 right central soreness compared over 55 on the left. Otherwise usual fiber 5 to detailed testing lower extremity. Laboratory Results [facility] does demonstrate evidence of massive central disc herniation at L4 5. This is creating significant central canal stenosis. There is evidence of disc desiccation with a 34 L4 5 level with a small posterior lateral disc protrusion at 51 Assessment & Plan Assessment herniated was pulposus L4 5 with severe spinal stenosis. Plan at this time in light of his worsening numbness significant pain and neural deficits is a candidate for a lumbar decompression and fusion at the L4 5 level. Risks benefits pros cons and alternatives were outlined in detail. Risk include but not limited to from anesthesia blindness sterile process nerve damage but last current transfusion infection requiring reoperation. Benefits of hopefully marked improvement of his radicular complaints. He understands numbness may take several months to resolve. Weakness may also take several months to resolve. Again at this time in light of his significant pain and neurologic presentation we will perform surgery as soon as possible. Did eat today. Surgical wait for tomorrow a.m. Is comfortable with this. I will place him on a CLOUD CONSULTANT for pain control. He will be made nothing by mouth after midnight.
[2017-07-18] MEDS: MoRPHine SULFATE 4 MG/ML 1 ML CARP\\VIAL IV PRN (23:14)
[2017-07-19] VITALS (8 sets, daily range): BP systolic 124–152; BP diastolic 66–90; PULSE 57–91; TEMP 36.6–37; O2SAT 91–98
[2017-07-19] MEDS: MoRPHine SULFATE 4 MG/ML 1 ML CARP\\VIAL IV PRN (05:47)
[2017-07-19] MEDS ORDERED: FENTANYL CITRATE INJ 50 MCG/1 ML 2 ML VIAL ONE ×2 (09:28→11:05)
[2017-07-19] MEDS ORDERED: GLYCOPYRROLATE INJ 0.2 MG/ML VIAL ONE (09:28)
[2017-07-19] MEDS ORDERED: ROCURONIUM BROMIDE 10 MG/ML 5 ML VIAL IV ONE ×4 (09:28→11:54)
[2017-07-19] MEDS ORDERED: NEOSTIGMINE METHYLSULFATE 1 MG/ML 10ML VIAL ONE (09:28)
[2017-07-19] MEDS ORDERED: PROPOFOL IV EMULSION 10 MG/ML 20 ML VIAL IV ONE (09:28)
[2017-07-19] MEDS ORDERED: DEXAMETHASONE SOD INJ 4 MG/ML VIAL ONE (09:28)
[2017-07-19] MEDS ORDERED: LIDOCAINE HCL 2% 2 ML VIAL (20MG/ML) ONE (09:28)
[2017-07-19] MEDS ORDERED: ONDANSETRON INJ 2 MG/ML 2 ML VIAL ONE (09:28)
[2017-07-19] MEDS ORDERED: MIDAZOLAM HCL 1 MG/ML 2ML VIAL ONE (09:28)
[2017-07-19] MEDS ORDERED: HYDROmorphone INJ 2 MG/ML SYR/VIAL ONE (09:29)
--- NOTE | 2017-07-19 09:29 | History & Physical Bridge Note ---
H&P Re-Evaluation Bridge Note: I have examined the patient, reviewed the History & Physical and in the interval since the performance of the History & Physical I have noted the following changes of clinical significance: No changes noted
[2017-07-19] MEDS ORDERED: CEFAZOLIN IV 3,000 MG/65 ML D5W IV ONE (09:45)
[2017-07-19] MEDS ORDERED: BUPIVACAINE/EPINEPHRINE 0.5% MPF 1:200,000 10 ML VIAL ONE ×2 (09:53→10:05)
[2017-07-19] MEDS ORDERED: BACITRACIN 50000 UNIT VIAL ONE (09:54)
[2017-07-19] MEDS ORDERED: EpHEDrine SULFATE INJ 50 MG/ML AMP IV PRN (10:00)
[2017-07-19] MEDS ORDERED: ONDANSETRON INJ 2 MG/ML 2 ML VIAL IV PRN ×2 (10:00→12:15)
[2017-07-19] MEDS ORDERED: FENTANYL CITRATE INJ 50 MCG/1 ML 2 ML VIAL IV PRN (10:00)
[2017-07-19] MEDS ORDERED: ATROPINE SULFATE 0.1 MG/ML 5ML SYR IV PRN (10:00)
[2017-07-19] MEDS ORDERED: HYDROmorphone INJ 1 MG/ML SYR IV PRN (10:00)
--- NOTE | 2017-07-19 10:13 | Hospitalist Progress Note ---
Hospitalist Progress Note Date of Service Jul 19, 2017. Subjective pain still there even with CONVEYANCER but feeling less distressed Respiratory: No shortness of breath Cardiovascular: No chest pain Abdomen: No pain Objective Vital Signs Date Time Temp Pulse Resp B/P (MAP) Pulse Ox O2 Delivery O2 Flow Rate FiO2 07/19/17 00:01 Room Air 07/19/17 00:00 36.6 62 20 151/90 (110) 95 Room Air 07/18/17 19:30 Room Air 07/18/17 19:00 36.6 63 17 152/94 (113) 95 Room Air 07/18/17 17:44 144/90 (108) 07/18/17 16:00 Room Air 07/18/17 15:20 172/73 (106) 07/18/17 15:16 36.8 70 20 95 Room Air Physical Exam General Appearance: + moderate distress Respiratory/Chest: lungs clear, no respiratory distress Cardiovascular: regular rate, rhythm Neurologic/Psychiatric: alert, oriented x 3, + pertinent finding (laying in bed. ) Skin: warm/dry Assessment and Plan 7 year old male with intractable back pain secondary to lumbar herniation Back pain with L4/L5 disc herniation causing cauda equina syndrome - Evaluated by ortho. For OR this am - d/c decadron after surgery - CONVEYANCER pump - Tramadol 50mg Q4H PRN - Acetaminophen VTE Prophylaxis - Will need to add chemical mode post op Code - Full
[2017-07-19] MEDS ORDERED: KETAMINE HCL INJ 50 MG/ML 10 ML VIAL ONE (10:36)
[2017-07-19] MEDS ORDERED: FLOSEAL HEMOSTATIC MATRIX 10ML TOP ONE (12:04)
[2017-07-19] MEDS ORDERED: SODIUM CHLORIDE 0.9% 1000ML 1,000 ML IV SCH (12:09)
[2017-07-19] MEDS ORDERED: DO NOT ADMINISTER FLU VACCINE PRN ×3 (12:15)
[2017-07-19] MEDS ORDERED: METOCLOPRAMIDE HCL INJ 5 MG/ML 2 ML VIAL IV PRN (12:15)
[2017-07-19] MEDS ORDERED: ACETAMINOPHEN 500 MG TAB PO PRN (12:15)
[2017-07-19] MEDS ORDERED: FAMOTIDINE 20 MG TAB PO PRN (12:15)
[2017-07-19] MEDS ORDERED: LORAZEPAM 0.5 MG TAB PO PRN (12:15)
[2017-07-19] MEDS ORDERED: LORAZEPAM INJ 0.5 MG in SYRINGE 0 ML IV PRN (12:15)
[2017-07-19] MEDS ORDERED: NALOXONE HCL 0.4 MG/1 ML VIAL/CARP IV PRN ×2 (12:15)
[2017-07-19] MEDS ORDERED: DC PCA PRN (12:15)
[2017-07-19] MEDS ORDERED: PROMETHAZINE HCL INJ 12.5 MG in SODIUM CHLORIDE 0.9% 50ML 50 ML IV PRN (12:15)
[2017-07-19] MEDS ORDERED: ALUMINUM/MAGNESIUM SUSP 30 ML UDC PO PRN (12:15)
[2017-07-19] MEDS ORDERED: hydrOXYzine HCL 25 MG TAB PO PRN (12:15)
[2017-07-19] MEDS ORDERED: BISACODYL 10 MG SUPP PR PRN (12:15)
[2017-07-19] MEDS ORDERED: MAGNESIUM HYDROXIDE SUSP 30 ML UDC PO PRN (12:15)
[2017-07-19] MEDS ORDERED: ACETAMINOPHEN IV 100 ML IV PRN (12:15)
[2017-07-19] MEDS ORDERED: DO NOT ADMINISTER PNEUMOCOCCAL VACCINE PRN ×2 (12:15)
[2017-07-19] MEDS ORDERED: SOD PHOSPHATE/SOD BIPHOSPHATE ENEMA 132 ML BTL PR PRN (12:15)
--- NOTE | 2017-07-19 12:15 | [facility] Operative Report ---
Operative Report Operative Date Jul 19, 2017. Pre-Operative Diagnosis Massive central disc herniation and spinal stenosis at L4-L5 Post-Operative Diagnosis Massive central disc herniation and spinal stenosis at L4-L5 Procedure(s) Performed #1 lumbar decompression bilateral medial facetectomies foraminotomies L4 5 with excision of massive herniated nucleus pulposus. 2 posterior spinal fusion L5. 3 placement posterior instrumentation L4 5. 4 interbody fusion L4 5. #5 placement peek cage 15 x 26 mm at L4 5. #6 placement of locally harvested morcellized autograft in the posterior lateral gutters. #7 placement of osteoamp bone graft in the interbody space and posterior lateral gutters. Surgeon Dr. Esparza Sponge Maker Surgeon(s) Amrita Dominguez Estimated Blood Loss 130 ml Findings Severe spinal stenosis with massive disc herniation L4 5 Specimens None per surgeon Description of Procedure Patient was met with preoperatively case discussed all questions are dressed. After informed consent patient was taken back to the operative suite and after undergoing successful intubation placed in a prone position on the Cortez table on top Osmany frame. All bony promises well-padded eyes inspected to ensure there is no external pressure placed upon them. This point the lumbar spine was prepped and draped nostril fashion. Sharp dissection with the assistance of Bovie cautery was performed onto an exposing the lamina and transverse processes of L4 5. From a caudal to cephalad fashion complete laminectomy of L4 was performed addressing severe spinal stenosis as well as a massive disc herniation. After complete decompression pedicle screws were placed in L4 5 bilaterally with assistance of fluoroscopy in the purposes shasta placed. Through a trans-foraminal approach on the right a complete discectomy of L4 5 was performed and plate created to subcortical bleeding bone and a 15 x 26 mm peek cage filled with ostial amp tapped in position. The rods were then locked and final position bilaterally the remaining bone graft was placed in the posterior lateral gutters. 7 flat DHRUV drain inserted. Incision then closed with 1 Vicryl in the fascia 2-0 Vicryl subcutaneous cutaneously 4 Monocryl for final skin closure Steri-Strip sterile dressing placed patient we can taken to PACU stable condition. Please note Amrita James present at the entire procedure involved in patient positioning complex portions of the surgery and final skin closure. I attest to the content of the Intraoperative Record and any orders documented therein. Any exceptions are noted below.
--- NOTE | 2017-07-19 12:24 | DIAGNOSTIC IMAGING REPORT ---
LUMBAR SPINE 2 OR 3 VIEW HISTORY: 37 years-old Male LUMBAR DECOMPRESSION/ FUSION L4-L5 COMPARISON: MRI lumbar spine 07/18/2017 TECHNIQUE: Frontal and lateral spot fluoroscopic images of the lumbar spine were obtained utilizing 20 seconds of fluoroscopy time. FINDINGS/IMPRESSION: There has been interval posterior decompression with discectomy and posterior interbody shasta and screw fusion at the L4-L5 level. Alignment is satisfactory. The above report was generated using voice recognition software. It may contain grammatical, syntax or spelling errors. Electronically signed by: Abiel Boston M.D. 07/19/2017 12:23 PM Dictated Date/Time: 07/19/2017 12:21 PM
--- NOTE | 2017-07-19 13:20 | Anesthesiology Progress Note ---
Anesthesia Post Op Note Date & Time Jul 19, 2017 at 13:20 Vital Signs Pain Intensity: 0 Vital Signs Past 12 Hours Date Time Temp Pulse Resp B/P (MAP) Pulse Ox O2 Delivery O2 Flow Rate FiO2 07/19/17 13:05 36.2 62 16 125/70 100 Nasal Cannula 4 07/19/17 12:55 36.2 75 16 132/72 99 Nasal Cannula 4 07/19/17 12:45 66 16 142/64 100 Nasal Cannula 4 07/19/17 12:35 60 16 127/64 100 Oxymask 10 07/19/17 12:27 36.1 78 16 150/81 100 Oxymask 10 07/19/17 08:00 Room Air Notes Mental Status: alert / awake / arousable, participated in evaluation Pt Amnestic to Procedure: Yes Nausea / Vomiting: adequately controlled Pain: adequately controlled Airway Patency, RR, SpO2: stable & adequate BP & HR: stable & adequate Hydration State: stable & adequate Anesthetic Complications: no major complications apparent
[2017-07-19] MEDS: HYDROmorphone HCL 0.5MG/ML 50 ML CASSETTE IV PRN ×3 (13:26→22:15)
[2017-07-19] MEDS: LACTATED RINGER'S 1000ML 1,000 ML IV SCH ×2 (14:04→19:09)
[2017-07-19] MEDS: CEFAZOLIN IV 3,000 MG in DEXTROSE 5% 50ML 50 ML IV SCH (19:24)
[2017-07-19] MEDS: DEXAMETHASONE INJ 6 MG in SYRINGE 0 ML IV SCH (19:25)
[2017-07-19] MEDS: DOCUSATE SODIUM/SENNA 50/8.6MG TAB PO SCH (21:21)
[2017-07-20] MEDS: LACTATED RINGER'S 1000ML 1,000 ML IV SCH (01:19)
[2017-07-20] MEDS: DEXAMETHASONE INJ 6 MG in SYRINGE 0 ML IV SCH ×2 (01:20→09:47)
[2017-07-20] MEDS: CEFAZOLIN IV 3,000 MG in DEXTROSE 5% 50ML 50 ML IV SCH (01:20)
[2017-07-20 03:47] VITALS: BP 125/71; PULSE 69; TEMP 36.7; O2SAT 94
[2017-07-20] MEDS ORDERED: NURSING DECISION MEDICATION ORDER SCH (05:45)
[2017-07-20 05:56] LABS: BASO % 0.1 %; BASO ABS # 0.01 K/uL (0-0.2); COMPLETE YES; HEMATOCRIT 43.4 % (42-52); IG% 0.3 %; LYMPH % 6.3 %; LYMPH ABS # 0.98 K/uL (1.2-3.4); MEAN CELL VOLUME 87.5 fL (80-100); MEAN CORPUSCULAR HGB CONC 34.3 g/dl (32-36); MEAN PLATELET VOLUME 11.2 fL (7.4-10.4); NEUT % 89.3 %; PLATELET COUNT 215 K/uL (130-400); RED BLOOD COUNT 4.96 M/uL (4.7-6.1); WHITE BLOOD COUNT 15.59 K/uL (4.8-10.8)
[2017-07-20] MEDS ORDERED: HYDROmorphone INJ 0.5 MG/0.5 ML SYR IV PRN (06:00)
[2017-07-20] MEDS ORDERED: HYDROmorphone INJ 1 MG/ML SYR IV PRN (06:00)
[2017-07-20 06:40] LABS: BUN/CREATININE RATIO 16.9 (10-20); CALCIUM 9.1 mg/dl (8.5-10.1); CREATININE 0.81 mg/dl (0.60-1.40); POTASSIUM 4.1 mmol/L (3.5-5.1)
[2017-07-20 07:03] VITALS: BP 142/76; PULSE 91; TEMP 36.6; O2SAT 95
[2017-07-20] MEDS: KETOROLAC TROMETHAMINE 30 MG/ML VIAL IV PRN (07:31)
[2017-07-20] MEDS ORDERED: RXC5 PO (07:45)
--- NOTE | 2017-07-20 07:45 | Discharge Instructions ---
Discharge Instructions Date of Service Jul 20, 2017. Admission Reason for Admission: Acute / Intractable Back Pain, Lumbar Herniated D Discharge Discharge Diagnosis / Problem: back and leg pain Discharge Goals Goal(s): Improve function Activity Recommendations Activity Limitations: per Instructions/Follow-up section . Instructions / Follow-Up Instructions / Follow-Up ACTIVITY RECOMMENDATIONS: SELF CARE INSTRUCTIONS AFTER THORACIC/LUMBAR FUSIONS 1. You may walk to your tolerance. It is good exercise for your legs and back. Expect some back and intermittent leg aches and pains. 2. You may perform "counter-top" level activities (make a sandwich, gris with a project, etc.). 3. No bending or lifting of more than 10 pounds or back twisting of any nature (roll like a log when turning in bed). 4. You may ride in a car for 20-30 minutes at a time. No driving until after your first visit with your doctor. 5. Frequent changes of position and restricting sitting to 30 minutes at a time will help limit the amount of back spasms and stiffness you may experience. 6. You may discontinue the use of ambulatory aids (cane, crutches, etc.) once your strength and confidence allow. 7. You may polishing wheel repairer the shower and let water strike your incision when you arrive home at least once daily. Do not take a tub bath, sit in a hot tub or go into a swimming pool until after your first recheck in the office. SPECIAL CARE INSTRUCTIONS: VERY IMPORTANT TO READ AND REVIEW A. Your surgical incision has been closed with a cosmetic suture under the skin that will dissolve in about 6 weeks. In 14 days, you can use a pair of clean scissors and cut the suture that is left outside of the skin at the ends of your incision. 1. The small skin tapes can be removed 7 days after surgery if they have not fallen off by that point. 2. You may keep the wound open to air as much as possible to promote healing after post-op day number 5 unless told otherwise by your doctor. 3. If you think the wound looks like it is becoming infected (redness or worsening drainage) and/or you are experiencing fever, chill or worsening back pain and muscle spasms, contact the office so that we may evaluate you as soon as possible. B. Complications are uncommon, but please contact us if you have any signs or symptoms of: 1. wound infection (fever higher than 102.5 degrees F, redness, separation of wound, drainage, or increasing pain from the incision) 2. blood clots in legs (pain, swelling, redness and warmth in legs) 3. urinary tract infection (fever higher than 102.5 degrees F, burning upon urination or increased frequency of urination) 4. nerve problems (inability to walk on your toes or heels, numbness, loss of bowel or bladder control) 5. any other symptoms that concern you C. Please call the office at if you have any concerns or questions about your operation or recovery. D. No smoking! Smoking drastically decreases the chance of a solid fusion. E. Do not take any anti-inflammatory medications (Indocin, Advil, Motrin, Aspirin, Naprosyn, etc.) as these may inhibit the chance of a solid fusion. Tylenol is okay to take for pain. MANAGING PAIN AFTER SPINAL SURGERY 1. Narcotic medication is intended for short-term use and will be provided for surgical pain. Surgical pain usually lasts for a period of 4-6 weeks. Narcotic medication includes Percocet, Vicodin, Darvocet, Tylenol #3 or Lortab. 2. Longer-term pain is more appropriately treated with non-narcotic medication such as Tylenol ES. 3. Muscle spasm is not appropriately treated with narcotics. Muscle relaxers such as Soma, Flexeril or Skelaxin can be used along with Tylenol ES. 4. Remember that we all live with some "aches and pains". This is not unusual or uncommon after an injury or as we get older. a. Back pain is expected and may include muscle spasms for 4 to 6 weeks after surgery. The pain should gradually improve. If the pain worsens for no apparent reason, please contact the office. b. Intermittent leg pain may also be experienced and should not be concerned about unless it worsens for no apparent reason. If so, please contact the office. 5. We will provide appropriate medication within the normal guidelines of their prescribed use. We will also be very cautious and aware of potential abuse and extended duration of patients' medication needs. a. Pain medications are for your comfort and to assist with sleep and rest so that the tissue can heal. They are not provided in order to return to normal activity and should not be used through the day. To do so or worsening pain at night can result from ongoing tissue damage and development of tolerance to the prescribed medicine. 6. Please allow 2-3 days to process refills. Prescriptions will not be mailed but must be picked up at the office. FOLLOW UP VISIT: Keep your scheduled follow-up appointment. Any questions, please call the office at . Current Hospital Diet Patient's current hospital diet: Regular Diet Discharge Diet Recommended Diet: Regular Diet Procedures Procedures Performed: #1 lumbar decompression bilateral medial facetectomies foraminotomies L4 5 with excision of massive herniated nucleus pulposus. 2 posterior spinal fusion L5. 3 placement posterior instrumentation L4 5. 4 interbody fusion L4 5. #5 placement peek cage 15 x 26 mm at L4 5. #6 placement of locally harvested morcellized autograft in the posterior lateral gutters. #7 placement of osteoamp bone graft in the interbody space and posterior lateral gutters. Pending Studies Studies pending at discharge: no Laboratory Results Lipid Panel Test 07/17/17 11:25 Range/Units Triglycerides Level 323 H 0-150 mg/dl Cholesterol Level 174 0-200 mg/dl HDL Cholesterol 24 mg/dl Cholesterol/HDL Ratio 7.3 LDL Cholesterol, Calculated 85 mg/dl Medical Emergencies . Who to Call and When: Medical Emergencies: If at any time you feel your situation is an emergency, please call 911 immediately. . Non-Emergent Contact Non-Emergency issues call your: Primary Care Provider . "Provider Documentation" section prepared by Los Esparza. . VTE Core Measure Inpt VTE Proph given/why not?: Matt Stockings, SCD's, Treatment not indicated
--- NOTE | 2017-07-20 14:42 | Family Medicine Progress Note ---
Progress Note Date of Service Jul 20, 2017. Subjective Pt evaluation today including: conversation w/ patient, physical exam, chart review, lab review, review of studies Pain: 4/10 PO Intake: WNL Voiding: no voiding problems Patient notes that he has been up and walking around with the PT. He has not had to use the NOXIOUS WEEDS AND PEST INSPECTOR for pain control. He also notes that he has been trying to use tylenol for pain control at a minimum. He denies any numbness/ tingling. Working towards discharge Constitutional: No fever Eyes: No worsening of vision ENT: No hearing loss Respiratory: No cough, No sputum, No wheezing, No shortness of breath, No dyspnea on exertion Cardiovascular: No chest pain Abdomen: No pain, No nausea, No vomiting, No diarrhea, No constipation Musculoskeletal: + joint pain (back pain) Male : No dysuria, No incontinence Neurologic: No weakness, No numbness/tingling Psychiatric: No depression symptoms Heme: No abnormal bleeding/bruising Endo: No fatigue Skin: No rash Medications Medications Administered Medications (Trade) Dose Ordered Sig/Gilmer Route Start Time Stop Time Status Last Admin Dose Admin Morphine Sulfate (MoRPHine SULFATE INJ) 8 mg NOW STAT IV 07/18/17 01:23 07/18/17 01:24 DC 07/18/17 01:55 8 MG Ketorolac Tromethamine (Toradol Inj) 30 mg NOW STAT IV 07/18/17 01:23 07/18/17 01:24 DC 07/18/17 01:56 30 MG Ondansetron HCl (Zofran Inj) 4 mg NOW STAT IV 07/18/17 01:23 07/18/17 01:24 DC 07/18/17 01:55 4 MG Morphine Sulfate (MoRPHine SULFATE INJ) 4 mg NOW STAT IV 07/18/17 02:35 07/18/17 02:36 DC 07/18/17 02:47 4 MG Morphine Sulfate (MoRPHine SULFATE INJ) 4 mg Q4H PRN IV 07/18/17 03:15 07/19/17 13:07 DC 07/19/17 05:47 4 MG Tramadol HCl (Ultram Tab) 50 mg Q2H PRN PO 07/18/17 03:45 07/19/17 13:09 DC 07/18/17 04:30 50 MG Ketorolac Tromethamine (Toradol Inj) 30 mg Q6H PRN IV 07/18/17 03:45 07/23/17 03:44 07/20/17 07:31 30 MG Hydromorphone HCl (Dilaudid Counter Waitress/Waiter) 25 mg PRN PRN IV 07/18/17 15:00 07/19/17 13:08 DC 07/18/17 16:45 25 MG Sodium Chloride 1,000 ml @ 15 mls/hr Q24H IV 07/18/17 14:58 07/19/17 13:08 DC 07/18/17 16:58 15 MLS/HR Cefazolin Sodium (Ancef 3000 Mg/ 65 ml D5W) 3,000 mg STK-MED ONCE IV 07/19/17 09:45 07/19/17 09:46 DC 07/19/17 09:54 3,000 MG Bupivacaine HCl/ Epinephrine Bitart (Sensorcaine/ Epinephrine 0.5% Mpf 1:200,000) 10 ml STK-MED ONCE .ROUTE 07/19/17 09:53 07/19/17 09:54 DC 07/19/17 10:50 10 ML Bacitracin (Bacitracin Inj) 50,000 units STK-MED ONCE .ROUTE 07/19/17 09:54 07/19/17 09:55 DC 07/19/17 12:03 50,000 UNITS Bupivacaine HCl/ Epinephrine Bitart (Sensorcaine/ Epinephrine 0.5% Mpf 1:200,000) 20 ml STK-MED ONCE .ROUTE 07/19/17 10:05 07/19/17 10:06 DC 07/19/17 10:50 20 ML Miscellaneous (Floseal Hemostatic Matrix 10ml) 10 ml ONE ONCE TOP 07/19/17 12:04 07/19/17 12:05 DC 07/19/17 12:04 10 ML Dexamethasone Sodium Phosphate 6 mg/Syringe 1.5 ml @ 1 mls/min Q8H IV 07/19/17 18:00 07/20/17 10:02 DC 07/20/17 09:47 1 MLS/MIN Cefazolin Sodium 3000 mg/Dextrose 65 ml @ 100 mls/hr Q8H IV 07/19/17 18:00 07/20/17 02:38 DC 07/20/17 01:20 100 MLS/HR Lactated Ringer's 1,000 ml @ 150 mls/hr Q6H40M IV 07/19/17 12:07 07/20/17 06:07 DC 07/20/17 01:19 150 MLS/HR Senna/Docusate Sodium (Senokot S Tab) 2 tab HS PO 07/19/17 21:00 08/18/17 20:59 07/19/17 21:21 2 TAB Al Hydroxide/Mg Hydroxide (Maalox Susp) 30 ml Q6H PRN PO 07/19/17 12:15 08/18/17 12:14 07/20/17 10:32 30 ML Hydromorphone HCl (Dilaudid Counter Waitress/Waiter) 25 mg PRN PRN IV 07/19/17 12:15 07/20/17 12:14 DC 07/19/17 22:15 25 MG Objective Vital Signs Date Time Temp Pulse Resp B/P (MAP) Pulse Ox O2 Delivery O2 Flow Rate FiO2 07/20/17 07:51 Room Air 07/20/17 07:03 36.6 91 16 142/76 (98) 95 Room Air 07/20/17 03:47 36.7 69 16 125/71 (89) 94 Room Air 07/19/17 23:35 36.6 74 16 145/66 (92) 94 Room Air 07/19/17 23:07 Room Air 07/19/17 18:58 37.0 91 17 124/74 (91) 91 Room Air 07/19/17 16:42 36.7 91 17 152/77 (102) 93 Room Air 07/19/17 16:20 Room Air 07/19/17 15:16 36.9 58 17 126/73 (90) 98 Nasal Cannula 3.0 Physical Exam General Appearance: no apparent distress Eyes: normal inspection ENT: normal ENT inspection Neck: supple Respiratory/Chest: normal breath sounds, no respiratory distress, no accessory muscle use Cardiovascular: regular rate, rhythm, no murmur Abdomen: normal bowel sounds, non tender, soft Extremities: normal inspection, no pedal edema, no calf tenderness Neurologic/Psychiatric: alert, normal mood/affect, oriented x 3 Skin: normal color, warm/dry, no rash, + pertinent finding (dressing on back was assessed, clean and dry, no discharge noted) Lymphatic: no adenopathy Laboratory Results Results Past 24 Hours Test 07/20/17 05:08 Range/Units White Blood Count 15.59 4.8-10.8 K/uL Red Blood Count 4.96 4.7-6.1 M/uL Hemoglobin 14.9 14.0-18.0 g/dL Hematocrit 43.4 42-52 % Mean Corpuscular Volume 87.5 80-100 fL Mean Corpuscular Hemoglobin 30.0 25-34 pg Mean Corpuscular Hemoglobin Concent 34.3 32-36 g/dl Platelet Count 215 130-400 K/uL Mean Platelet Volume 11.2 7.4-10.4 fL Neutrophils (%) (Auto) 89.3 % Lymphocytes (%) (Auto) 6.3 % Monocytes (%) (Auto) 4.0 % Eosinophils (%) (Auto) 0.0 % Basophils (%) (Auto) 0.1 % Neutrophils # (Auto) 13.94 1.4-6.5 K/uL Lymphocytes # (Auto) 0.98 1.2-3.4 K/uL Monocytes # (Auto) 0.62 0.11-0.59 K/uL Eosinophils # (Auto) 0.00 0-0.5 K/uL Basophils # (Auto) 0.01 0-0.2 K/uL RDW Standard Deviation 42.0 36.4-46.3 fL RDW Coefficient of Variation 13.2 11.5-14.5 % Immature Granulocyte % (Auto) 0.3 % Immature Granulocyte # (Auto) 0.04 0.00-0.02 K/uL Sodium Level 141 136-145 mmol/L Potassium Level 4.1 3.5-5.1 mmol/L Chloride Level 103 98-107 mmol/L Carbon Dioxide Level 30 21-32 mmol/L Anion Gap 8.0 3-11 mmol/L Blood Urea Nitrogen 14 7-18 mg/dl Creatinine 0.81 0.60-1.40 mg/dl Est Creatinine Clear Calc Drug Dose 172.7 ml/min Estimated GFR () 129.8 Estimated GFR (Non- 112.0 BUN/Creatinine Ratio 16.9 10-20 Random Glucose 132 70-99 mg/dl Calcium Level 9.1 8.5-10.1 mg/dl Assessment and Plan This is a 37 yo m that presented to the ED with intractable back pain, The patient notes he has a history of lumbar disc herniation and over the two weeks prior to admission he had a slow worsening of back pain. On assessment in the hospital he was found to have right LE numbness and concern for cauda equina syndrome. He underwent a lumbar decompression of L4/L5 by Dr Esparza on Jul 192016. The numbness has since resolved Back pain with L4/L5 massive central disc herniation causing cauda equina syndrome; POD 1 lumbar decompression - Completed by Dr Esparza - Decadron x 3 doses and d/c - NOXIOUS WEEDS AND PEST INSPECTOR pump has not been needed - Tramadol 50mg Q4H PRN - Acetaminophen - PT/OT while on inpatient VTE Prophylaxis - SCD Code - Full Continued [facility] stay due to: inadequate oral pain control Discharge planning: home Reviewed: Pt Seen/Exam by Me History Resident Physician Supervision Note: I interviewed and examined the patient. Discussed with Dr. Cummings and agree with findings and plan as documented in the note. Any exceptions or clarifications are listed here: Patient doing very well today, pain is controlled with Tylenol, has been ablating, he is moving his bowels and tolerating by mouth. He is anxious for discharge likely tomorrow. Alert awake oriented 3, no acute distress Regular rate and rhythm, no murmurs, rubs or rubs Clear to auscultation bilaterally, breathing unlabored Abdomen positive bowel sounds soft nontender nondistended Musculoskeletal-back with dressing clean dry and intact, no lower extremity edema Skin no rashes 37-year-old male here with severely herniated L4-L5 disc with possible cauda equina syndrome now status post lumbar decompression and fusion. Doing very well postoperatively -Continue to mobilize and likely discharged home tomorrow Documented By: Marina Diaz
--- NOTE | 2017-07-20 15:20 | Progress Note ---
Progress Note Date of Service Jul 20, 2017. Progress Note Patient is doing quite well postoperatively. Leg pain markedly improved. Vital signs are stable. DHRUV drain decreasing appropriately. Assessment status post lumbar depression fusion replant this time will maintain the DHRUV drain another 25 hours assess his progress anticipate home tomorrow.
[2017-07-20 15:30] VITALS: BP 134/78; PULSE 65; TEMP 36.7; O2SAT 92
[2017-07-20] MEDS: OXYCODONE HCL IR 5 MG TAB (IMMEDIATE RELEASE) PO PRN ×2 (19:39→23:49)
[2017-07-20] MEDS: DOCUSATE SODIUM/SENNA 50/8.6MG TAB PO SCH (21:00)
[2017-07-20 23:00] VITALS: BP 178/81; PULSE 75; TEMP 36.8; O2SAT 98
[2017-07-21 00:10] VITALS: BP 144/74; PULSE 79
[2017-07-21] MEDS ORDERED: NURSING DECISION MEDICATION ORDER SCH (00:30)
[2017-07-21] MEDS ORDERED: POLYETHYLENE (MIRALAX) 17 GM PACK PO SCH (06:00)
[2017-07-21 07:52] LABS: BASO % 0.1 %; BASO ABS # 0.01 K/uL (0-0.2); COMPLETE YES; EOS % 0.2 %; HEMATOCRIT 45.8 % (42-52); IG% 0.3 %; LYMPH % 25.3 %; LYMPH ABS # 3.28 K/uL (1.2-3.4); MEAN CELL VOLUME 89.1 fL (80-100); MEAN CORPUSCULAR HEMOGLOBIN 30.4 pg (25-34); MEAN CORPUSCULAR HGB CONC 34.1 g/dl (32-36); MEAN PLATELET VOLUME 10.5 fL (7.4-10.4); NEUT % 65.1 %; PLATELET COUNT 204 K/uL (130-400); RED BLOOD COUNT 5.14 M/uL (4.7-6.1); WHITE BLOOD COUNT 12.95 K/uL (4.8-10.8)
[2017-07-21 08:01] VITALS: BP 144/74; PULSE 79; TEMP 36.8; O2SAT 98
[2017-07-21 08:21] LABS: BUN/CREATININE RATIO 16.2 (10-20); CALCIUM 9.3 mg/dl (8.5-10.1); CREATININE 0.86 mg/dl (0.60-1.40)
--- NOTE | 2017-07-21 08:56 | Discharge Summary ---
Orthopedic Discharge Summary Admission Date/Reason Jul 19, 2017 at 12:09 Acute / Intractable Back Pain, Lumbar Herniated D. Discharge Date/Disposition Jul 21, 2017 Home Diagnosis Principal Diagnosis: Lumbar stenosis Admission Physical Exam As per Admitting History & Physical. Hospital Course Patient was met in the hospital with significant back pain. He continued decline. MRI was obtained. This demonstrated severe stenosis L4 5. Substernally we will underwent urgent decompression and fusion L45. He tolerated this well. Postoperative leash was up and ambulatory leg symptoms markedly improved. Substernally was discharged on postoperative day 2. Discharge orders and instructions found on the chart for further review. Discharge Instructions Please refer to the electronic Patient Visit Report (Discharge Instructions) for additional information.
[2017-07-21 08:57] VITALS: BP 158/78; PULSE 89; TEMP 36.8; O2SAT 98
--- NOTE | 2017-07-21 10:03 | Discharge Instructions ---
Discharge Instructions Date of Service Jul 21, 2017. Admission Reason for Admission: Acute / Intractable Back Pain, Lumbar Herniated D Discharge Discharge Diagnosis / Problem: Lumbar decompression Discharge Goals Goal(s): Decrease discomfort, Improve function, Increase independence Activity Recommendations Activity Limitations: per Instructions/Follow-up section . Instructions / Follow-Up Instructions / Follow-Up You were admitted to the hospital for the treatment of intractable back pain secondary to a lumbar disc herniation. You had underwent a lumbar decompression surgery and have progressed well to discharge. Dr Esparza has prescribed you medication called Oxycodone for pain control. When using this medication refrain from driving or drinking any alcohol. We also recommend you follow the instructions provided by ortho with regards to activities. We wish you katja olmstead Current Hospital Diet Patient's current hospital diet: Regular Diet Discharge Diet Recommended Diet: Regular Diet Procedures Procedures Performed: #1 lumbar decompression bilateral medial facetectomies foraminotomies L4 5 with excision of massive herniated nucleus pulposus. 2 posterior spinal fusion L5. 3 placement posterior instrumentation L4 5. 4 interbody fusion L4 5. #5 placement peek cage 15 x 26 mm at L4 5. #6 placement of locally harvested morcellized autograft in the posterior lateral gutters. #7 placement of osteoamp bone graft in the interbody space and posterior lateral gutters. Pending Studies Studies pending at discharge: no Laboratory Results Lipid Panel Test 07/17/17 11:25 Range/Units Triglycerides Level 323 H 0-150 mg/dl Cholesterol Level 174 0-200 mg/dl HDL Cholesterol 24 mg/dl Cholesterol/HDL Ratio 7.3 LDL Cholesterol, Calculated 85 mg/dl Medical Emergencies . Who to Call and When: Medical Emergencies: If at any time you feel your situation is an emergency, please call 911 immediately. . Non-Emergent Contact Non-Emergency issues call your: Primary Care Provider, Specialist Call Non-Emergent contact if: you have a fever, your pain is worsening, your pain is unusual for you, your pain is concerning you, wound has increased drainage, wound has increased redness, wound has increased pain . . "Provider Documentation" section prepared by Kena Olmstead. . VTE Core Measure Inpt VTE Proph given/why not?: T.E.D. Stockings, SCD's, Treatment not indicated
--- NOTE | 2017-07-21 10:07 | Discharge Summary ---
Discharge Summary Date of Service Jul 21, 2017. (Kena Cummings MD) Discharge Summary Admission Date: Jul 19, 2017 at 12:09 Discharge Date: Jul 21, 2017 Discharge Disposition: Home Principal Diagnosis: Lumbar herniation requiring lumbar decompression Problems/Secondary Diagnoses: Cauda equina syndrome htn Immunizations: Have You Had Influenza Vaccine: Unknown History of Tetanus Vaccine?: Unknown History of Pneumococcal: Unknown History of Hepatitis B Vaccine: Unknown Procedures: Lumbar decompression Consultations: Dr esparza (Kena Cummings MD) Medication Reconciliation New Medications: Oxycodone HCl (Oxycodone HCl) 5 Mg Tab 5-10 MG PO Q4H PRN for Moderate - severe pain for 30 Days, #60 TAB Continued Medications: Diazepam (Valium) 5 Mg Tab 5 MG PO TID, #9 TAB Discontinued Medications: Naproxen Sodium (Aleve) 220 Mg Tab 220 MG PO UD PRN for Pain Discharge Exam Patient is doing well, walking in hallway with walker pain is under good control with current regimen questions were discussed and patient was agreeable to discharge Review of Systems: Constitutional: No fever Eyes: No worsening of vision ENT: No hearing loss Respiratory: No cough, No sputum, No wheezing, No shortness of breath, No dyspnea on exertion, No dyspnea at rest Cardiovascular: No chest pain Abdomen: No pain, No nausea, No vomiting, No diarrhea, No constipation Musculoskeletal: No joint pain, No muscle pain Genitourinary - Male: No hematuria, No dysuria Neurologic: + balance problems, No weakness, No numbness/tingling Psychiatric: No depression symptoms Endocrine: No fatigue Hematologic / Lymphatic: No abnormal bleeding/bruising Integumentary: No rash Physical Exam: General Appearance: no apparent distress Eyes: normal inspection ENT: normal ENT inspection Neck: supple Respiratory/Chest: normal breath sounds, no respiratory distress, no accessory muscle use Cardiovascular: regular rate, rhythm, no murmur, normal peripheral pulses Abdomen / GI: normal bowel sounds, non tender, soft Extremities: normal inspection, no calf tenderness, no pedal edema Neurologic/Psychiatric: alert, normal mood/affect, oriented x 3 Skin: normal color, warm/dry, no rash, + pertinent finding (dressing is clean and intact) Lymphatic: no adenopathy (Kena Cummings MD) Hospital Course This is a 37 yo m that presented to the ED with intractable back pain, The patient notes he has a history of lumbar disc herniation and over the two weeks prior to admission he had a slow worsening of back pain. On assessment in the hospital he was found to have right LE numbness and concern for cauda equina syndrome. He underwent a lumbar decompression of L4/L5 by Dr Esparza on Jul 192016. The numbness has since resolved. He had progressed well and patient was d/ c home. Back pain with L4/L5 massive central disc herniation causing cauda equina syndrome; POD 2 lumbar decompression - Completed by Dr Esparza - Decadron x 3 doses and d/c - Patient was d/c with Oxycodone per ortho VTE Prophylaxis - SCD Code - Full Total Time Spent: Less than 30 minutes This includes examination of the patient, discharge planning, medication reconciliation, and communication with other providers. (Kena Cummings MD) Discharge Instructions Please refer to the electronic Patient Visit Report (Discharge Instructions) for additional information. (Kena Cummings MD) Additional Copies To Sarthak Parker D.O. Reviewed: Pt Seen/Exam by Me (Marina Diaz MD) History Resident Physician Supervision Note: I did not get a chance to see the patient today prior to discharge. Discussed with Dr. Cummings and agree with plan as documented in the note. Any exceptions or clarifications are listed here: 37-year-old male here with severely herniated L4-L5 disc with possible cauda equina syndrome now status post lumbar decompression and fusion. Doing very well postoperatively -dc to home with f/u with PCP and Ortho Spine Documented By: Marina Diaz (Marina Diaz MD)
[2017-07-21] MEDS: OXYCODONE HCL IR 5 MG TAB (IMMEDIATE RELEASE) PO PRN (10:26)
== END 2017-07-21 10:54 | disposition home or self-care (01) | DRG 460 ==
LOC: C.EDB 00:33 → C.MED 03:18 → ENRESERV 03:44 → OBSVTOIN 07-19 12:09 → ENRESERV 07-19 12:49 → C.3E 07-19 14:11
PROVIDERS: ADMIT Hospitalist; ATTEND Family Medicine
PROC: 0SG00AJ Fusion of Lumbar Vertebral Joint with Interbody Fusion Device, Posterior Approach, Anterior Column, Open Approach (ICD-10-PCS; principal; 2017-07-19 09:30)
PROC: 0ST20ZZ Resection of Lumbar Vertebral Disc, Open Approach (ICD-10-PCS; principal; 2017-07-19 09:30)
DX: M51.26 Other intervertebral disc displacement, lumbar region (principal); G83.4 Cauda equina syndrome; M48.06 Spinal stenosis, lumbar region; Z79.899 Other long term (current) drug therapy